=== PATIENT | female | born 1975 | race Caucasian/White ===

== ENCOUNTER 2020-10-20 20:48 | Emergency (ER) | payer OTHER ==
[~2020-10-20 20:48] MED LIST: LACTULOSE20 GM/30 M PO
[2020-10-20 21:23] LABS: HEMOGLOBIN 15.4 gm/dl (12.3-15.3); RED BLOOD COUNT 4.99 M/UL (4.00-5.10); WHITE BLOOD COUNT 12.6 K/UL (4.5-11.0)
[2020-10-20 21:44] LABS: BUN/CREATININE RATIO 16 (0-10)
== END 2020-10-21 01:15 | disposition home or self-care (01) ==
LOC: ER1 20:48
PROVIDERS: Preventive Medicine Occupational Medicine
DX: R00.2 Palpitations (principal); I10 Essential (primary) hypertension
CPT/HCPCS: 71045; 80053; 82550; 82553; 83874; 83880; 84484; 85025; 85379; 93005; 99285

== ENCOUNTER → 2021-06-06 | Outpatient (CLI) | payer OTHER | LOC: KOH-I 16:25 | DX: R51.9 Headache, unspecified (principal) | CPT/HCPCS: 70450 ==